=== PATIENT | male | born 1970 | race Two or more races ===

== ENCOUNTER 2018-03-06 08:26 | Day surgery (SDC) | payer OTHER ==
[~2018-03-06] VITALS: Ht 157.5 cm; Wt 77.1 kg
[2018-03-06] VITALS (8 sets, daily range): BP systolic 102–114; BP diastolic 56–69
[~2018-03-06 08:26] MED LIST: LR 1000ml 1,000 ML IVLG SCH; NKM
--- NOTE | 2018-03-06 10:20 | Anethesia Preoperative Eval ---
Anesthesia Pre-op PMH/ROS General Date of Evaluation: Mar 06, 2018 Time of Evaluation: 10:45 Anesthesiologist: Marlon ASA Score: ASA 2 Mallampati Score Class I : Soft palate, uvula, fauces, pillars visible Class II: Soft palate, uvula, fauces visible Class III: Soft palate, base of uvula visible Class IV: Only hard plate visible Mallampati Classification: Class II Surgeon: Eleazar Diagnosis: abd pain/rectal bleeding Surgical Procedure: colonoscopy Anesthesia History: none Family History: no anesthesia problems Allergies: Coded Allergies: No Known Allergies (Unverified , 03/05/18) Medications: see eMAR Patient NPO?: Yes NPO Date: Mar 06, 2018 NPO Time: 05:00 - drank 1/2 cup water at 5 am Past Medical History Cardiovascular: Denies: HTN, CAD, [place], valve dz, arrhythmia, other Pulmonary: Denies: asthma, COPD, SYLVIA, other Gastrointestinal/Genitourinary: Reports: GERD, other - hemorrhoids, rectal bleeding, abd pain Neurologic/Psychiatric: Reports: depression/anxiety Endocrine: Denies: DM, hypothyroidism, steroids, other Hematology/Immune: Denies: anemia, DVT, bleeding disorder, other Musculoskeletal/Integumentary: Reports: DJD, other - back pain due to back injury secondary to fall at work, unsteady gait uses knee brace and walker Anesthesia Pre-op Phys. Exam Physician Exam Last Vital Signs Date Time Temp Pulse Resp B/P (MAP) Pulse Ox O2 Delivery O2 Flow Rate FiO2 03/06/18 09:22 98.1 63 20 114/69 96 Room Air 98.1 Constitutional: NAD Neurologic: CN 2-12 intact Cardiovascular: RRR Respiratory: CTA Gastrointestinal: S/NT/ND Airway Exam Mallampati Score: Class II MO: full ROM: full Teeth: intact Dentures: no upper, no lower Anesthesia Pre-op A/P Labs chart reviewed Risk Assessment & Plan Assessment: A&Ox4 Plan: MAC Status Change Before Surgery: Kimberly Wells CRNA Mar 06, 2018 10:20
--- NOTE | 2018-03-06 10:40 | Short Stay Surgery H&P ---
History of Present Illness History of Present Illness Chief Complaint Abdominal pains/rectal bleeding HPI Leonardo Banks is a 48 year old male who was admitted on for Abd Pain/rectal bleeding Patient History Allergies: Coded Allergies: No Known Allergies (Unverified , 03/05/18) Medication History Scheduled No Known Medications* (NKM - No Known Medications*), 0 ., (Reported) Review of Systems Cardiovascular: Reports: no symptoms Respiratory: Reports: no symptoms Skeletal: Reports: no symptoms Gastrointestinal: Reports: other Genitourinary: Reports: no symptoms Neurologic: Reports: no symptoms Endocrine: Reports: no symptoms Hematologic: Reports: no symptoms Physical Exam Vital Signs Last Vital Signs Date Time Temp Pulse Resp B/P (MAP) Pulse Ox O2 Delivery O2 Flow Rate FiO2 03/06/18 09:22 98.1 63 20 114/69 96 Room Air 98.1 Skin: normal HENT: normal Heart: normal Lungs: normal Abdomen: normal Extremities: normal Genitourinary: normal Plan Plan of Care Total colonoscopy and possible biopsy. Preop Interventions None. Summary of Findings See the reports. Attestation Are the patient's medical conditions optimized for surgery? Attestation Response: yes Radha Bush MD Mar 06, 2018 10:40
--- NOTE | 2018-03-06 10:41 | Pre-Procedure Note/Attestation ---
Pre-Procedure Note/Attestation Complete Prior to Procedure Planned Procedure: left Procedure Narrative: The examination of the colon via endoscopy. Indications for Procedure Pre-Operative Diagnosis: R/O colitis/hemorrhoids/tumnors/polyps. Attestation I attest that I discussed the nature of the procedure; its benefits; risks and complications; and alternatives (and the risks and benefits of such alternatives ), prior to the procedure, with the patient (or the patient's legal internet sales representative). I attest that, if there was a reasonable possibility of needing a blood transfusion, the patient (or the patient's legal internet sales representative) was given the [facility] standardized written summary, pursuant to the [place] Blood Safety Act ([place] Health and Safety Code # 1645, as amended). I attest that I re-evaluated the patient just prior to the surgery and that there has been no change in the patient's H&P, except as documented below: Radha Bush MD Mar 06, 2018 10:41
[2018-03-06] MEDS ORDERED: LR 1000ml ONE (11:00)
[2018-03-06] MEDS ORDERED: Midazolam 2mg/2ml Inj ONE (11:00)
[2018-03-06] MEDS ORDERED: Lidocaine 1% MPF 10mg/ml 5ml ONE (11:00)
[2018-03-06] MEDS ORDERED: Propofol 200mg/20ml IV ONE (11:00)
--- NOTE | 2018-03-06 11:13 | Immediate Post-Op Evaluation ---
Immediate Post-Op Evalulation Immediate Post-Op Evalulation Procedure: colonoscopy Date of Evaluation: Mar 06, 2018 Time of Evaluation: 11:31 IV Fluids: LR 600ml Blood Products: 0 Estimated Blood Loss: 0 Urinary Output: 0 Blood Pressure Systolic: 102 Blood Pressure Diastolic: 63 Pulse Rate: 71 Respiratory Rate: 22 O2 Sat by Pulse Oximetry: 99 Temperature (Fahrenheit): 97 Pain Score (1-10): 0 Nausea: No Vomiting: No Complications none noted Patient Status: awake, reacts, patent Hydration Status: adequate Given Within 1 Hr of Incision: No - none per surgeon Kimberly Mason CRNA Mar 06, 2018 11:13
--- NOTE | 2018-03-06 11:14 | 48 Hour Post Anesthesia Eval ---
Post Anesthesia Evaluation Procedure: colonoscopy Date of Evaluation: Mar 06, 2018 Time of Evaluation: 12:19 Blood Pressure Systolic: 110 0: 58 Pulse Rate: 63 Respiratory Rate: 18 Temperature (Fahrenheit): 97.8 O2 Sat by Pulse Oximetry: 97 Airway: patent Nausea: No Vomiting: No Hydration Status: adequate Cardiopulmonary Status: WNL Mental Status/LOC: patient returned to baseline Follow-up care needed: patient intructions given Kimberly Mason CRNA Mar 06, 2018 11:14
--- NOTE | 2018-03-06 11:24 | Endoscopy Procedure Note ---
Endoscopy Procedure Note General Indication for Procedure: Rectal bleeding/abdominal pains Procedures Performed: colonoscopy - Minimal internal hemorrhoids, otherwise completely normal total colonoscopy. Specimen: yes Pt Tolerated Procedure Well: Yes Estimated Blood Loss: none Anesthesia Anesthesiologist: Ms. Marlon LOPEZ Anesthesia: moderate sedation Medications Medication Given: see anesthesia record Inserted Devices Implant(s) used?: No Quality Quality of Bowel Preparation: Excellent Was there any complications?: No GI Core Measures 50 yrs or older w/o bx or poly: No 10yrs. F/U not recommended: Yes 10 yrs. F/U needed: Yes 18 years or older w/prev. colo: No <3yrs. since last colonoscopy: No Med reason:<3 yrs.: System Reason:<3 yrs.: Radha Bush MD Mar 06, 2018 11:24
--- NOTE | 2018-03-06 11:25 | Discharge Instructions ---
Discharge Instructions Discharge Instructions Follow up with: see the doctor in office after two weeks. For Congestive Heart Failure Reminder Report to your physician any weight gain of 5 pounds or more in one week. Radha Bush MD Mar 06, 2018 11:25
--- NOTE | 2018-03-06 17:45 | Pre-op HX & Phy Repo 2 SIG ---
DATE OF ADMISSION: 03/06/2018 HISTORY OF PRESENT ILLNESS: The patient is a 48-year-old gentleman who is being seen prior to undergoing the procedure of total colonoscopy for which he has been scheduled to receive for evaluation of his condition of rectal bleeding and abdominal pain. The patient has been functioning as a farm mechanic and as such during the process of his job, he was injured at job site as he obviously fell from a ladder which was 8-10 feet and fell over the ground. As such, he sustained multiple injuries over different parts of body and subsequently he was treated with multiple medications including strong analgesics, acid suppressors, nonsteroidal anti-inflammatory agents, etc. At this point, the patient is being examined with colonoscopic examination as he has been complaining of having bright red blood over his stools that has been going on for sometimes along with experiencing abdominal pain. He also does have evidence of mild heartburn, which is not that significant. PAST MEDICAL HISTORY: None significant. He denies having had hyperlipidemia, diabetes, or high cholesterol, etc. SURGERIES: None. ALLERGIES: None significant. HABITS: The applicant denies drinking alcohol or smoking cigarettes and does not use any illicit drugs either. MEDICATIONS: None mentioned at this point. REVIEW OF SYSTEMS: Basically history of present illness. PHYSICAL EXAMINATION: GENERAL: Reveals an alert, oriented, very pleasant gentleman, who does not seem to be in any acute distress. He looks well developed and nourished. VITAL SIGNS: All stable. HEENT: Normocephalic. Pupils equal in size and reactive to light and accommodation. No jaundice. NECK: Supple. No JVD or thyromegaly. CHEST: Clear to auscultation and percussion. HEART: S1, S2 normal. Regular rhythm. No gallops or murmur. ABDOMEN: Tender in different parts of the abdomen, but very minimal and is not that significant particularly over the lower part of the abdomen, but there is no organomegaly or masses noted at this time. EXTREMITIES: Unremarkable. PRELIMINARY PREOPERATIVE IMPRESSION: 1. History of rectal bleeding of uncertain etiology, rule out internal hemorrhoids versus NSAID colitis, polyps, tumors, etc. 2. History of bodily injury, work related. Orthopedic diagnosis. RECOMMENDATION: The applicant seems to be stable at this time to undergo the procedure of total colonoscopy for which he has been scheduled with. He understands the risks and benefits and will sign the consent. Said Soraya Bush DR: Harris JOB#: [id number] CC:
--- NOTE | 2018-03-06 18:15 | Operative Note - Dictated ---
DATE OF OPERATION: 03/06/2018 PROCEDURE: Total colonoscopy. SURGEON: Radha Bush M.D. PREOPERATIVE DIAGNOSES: Rectal bleeding, abdominal pain. POSTOPERATIVE DIAGNOSIS: Highly redundant left colon with minimal internal hemorrhoids, otherwise completely normal total colonoscopy and examined up to the base of the cecum. MEDICATION USED: Per Ms. Marlon CRNA. INSTRUMENT: GIF Olympus videocolonoscope. DESCRIPTION OF PROCEDURE: The patient after arriving in endoscopy unit, was told about risks and benefits of the procedure which he accepted and signed informed consent. He was then put on the left lateral decubitus position. After adequate IV sedation, the scope was gently passed through the anal area which revealed evidence of minimal hemorrhoidal tags of no great significance. At this point, the scope was advanced into the rectum and retroflexion maneuver was applied and revealed evidence of minimal internal hemorrhoids, which were not friable at this point. There was no other pathology in the rectum either. No tumor, polyps, inflammatory process, colitis, etc. At this point to significant amount of time, which was spent to pass the scope through highly redundant and twisted left colon, and finally the scope could reach to the splenic flexure. From there, it was guided into the transverse colon, hepatic flexure, and introduced into the right colon all the way to the base of the cecum. All these areas remained to be completely normal without any evidence of intramural pathology. No polyps, tumors, inflammatory process, stricture, colitis, etc. was seen. The colon cleanup was adequate and within 7 minutes, the scope was gradually pulled out and re-evaluation of the colon did not reveal any other pathologies except what was stated earlier. The patient tolerated the procedure well and left the endoscopy room in good condition. Radha Bush M.D. DR: Harris JOB#: [id number] CC:
== END 2018-03-06 12:35 | disposition home or self-care (01) ==
LOC: SUR 08:26
DX: K62.5 Hemorrhage of anus and rectum (principal); Q43.8 Other specified congenital malformations of intestine; K64.8 Other hemorrhoids; K21.9 Gastro-esophageal reflux disease without esophagitis; F32.9 Major depressive disorder, single episode, unspecified; F41.9 Anxiety disorder, unspecified; M19.90 Unspecified osteoarthritis, unspecified site
CPT/HCPCS: 45378; J2250; J2704; 94003; 94150